=== PATIENT | male | born 1945 | race Caucasian/White ===

== ENCOUNTER 2022-12-26 12:35 | Outpatient (AMB) | payer MEDICARE, SELFPAY ==
--- NOTE | 2022-12-26 12:16 | HO.NEPHOV ---
HPI HPI Comments History of Present Illness Details Elderly man with a history of chronic disease in setting of diabetes mellitus. His history of orthostatic hypertension. Results Reviewed Results Reviewed: All results reviewed Assessment & Plan Assessment & Plan (1) CKD (chronic kidney disease) stage 3, GFR 30-59 ml/min: Code(s): N18.30 - Chronic kidney disease, stage 3 unspecified Plan Renal function close to baseline. Continue monitor renal function for now. Avoid nephrotoxic agents. Continue watch for orthostatic blood pressure changes and avoid rapid change in posture. We discuss orthostatic precautions. He sustained a regular salt diet. No changes were made to his medications. Orders: Orders Electrolytes 4 Weeks N18.30 - Chronic kidney disease, stage 3 unspecified Blood Urea Nitrogen 4 Weeks N18.30 - Chronic kidney disease, stage 3 unspecified Creatinine 4 Weeks N18.30 - Chronic kidney disease, stage 3 unspecified Calcium 4 Weeks N18.30 - Chronic kidney disease, stage 3 unspecified Telehealth Telehealth Location of provider rendering services: practice address Location of patient: address on file Patient Identification confirmed using: Name, : Yes Telehealth method: voice only Patient verbally consented to treatment: Yes Patient verbally consented to billing insurance company: Yes Patient informed of any privacy concerns related to visit: Yes Minutes spent on Phone/Video with Pt.: 12 Coding Level of Care Code Tele Est Pt Level 2 (17539) Diagnoses CKD (chronic kidney disease) stage 3, GFR 30-59 ml/min N18.30
== END 2022-12-26 13:39 | disposition home or self-care (01) ==
LOC: HO.HKA 12:35
PROVIDERS: PCP Specialist; Visit Provider Internal Medicine Hypertension Specialist
DX: N18.30 Chronic kidney disease, stage 3 unspecified (principal)
CPT/HCPCS: 99442

== ENCOUNTER → 2022-12-26 12:35 | Outpatient (BNVA) | payer MEDICARE, SELFPAY | PROVIDERS: PCP Specialist; Visit Provider Internal Medicine Hypertension Specialist ==

== ENCOUNTER 2023-08-05 14:07 | Outpatient (AMB) | payer MEDICARE, SELFPAY ==
--- NOTE | 2023-08-05 14:11 | HO.NEPHOV_ITS ---
Vital Signs 08/05/23 14:12 08/05/23 14:47 08/05/23 14:47 Height 6 ft 2 in Weight 236 lb BMI 30.3 BP 110/62 100/60 84/50 L Blood Pressure Location Lt brachial Lt brachial Lt brachial Position Sitting Sitting Standing Intake Visit Reasons: CKD STG 3 FU/ confirmed Child Life Therapist Required: No Accompanied by: Spouse Allergies methocarbamol Allergy (Unknown, Verified 08/05/23 14:15) Unknown Penicillins Allergy (Unknown, Verified 08/05/23 14:15) Hives prednisone Allergy (Unknown, Verified 08/05/23 14:15) Unknown Medication List - Last Reconciled 08/05/23 by Alton Perez MD amlodipine 5 mg PO .evening apixaban (Eliquis) 2.5 mg PO BID atorvastatin 20 mg PO BEDTIME dapagliflozin propanediol (Farxiga) 10 mg PO DAILY donepezil 10 mg PO BEDTIME echinacea 450 mg PO DAILY finasteride 5 mg PO DAILY insulin degludec (Tresiba FlexTouch U-100 insulin) units subcut losartan 50 mg PO BID mecobalamin (vitamin B12) mcg PO memantine 10 mg PO QPM multivitamin 1 tab PO DAILY pantoprazole 40 mg PO DAILY sertraline 50 mg PO DAILY sertraline 25 mg PO DAILY spironolactone 25 mg PO DAILY turmeric root extract 1,000 mg PO DAILY HPI Comments Details: Adán Gaming is a pleasant 77-year-old man with a history of chronic kidney disease and in a setting of diabetes mellitus with orthostatic blood pressure changes. He has a history of lumbar fusion surgery back in 07/13/2015. He was on a clinical trial for Alzheimer's few years ago however he developed side effects and he was taken of the study. History of prostate CA status post radiation he stopped Lupron due to side effects. Today he is here for follow-up. Accompanied by his . No shortness of breath. No urinary symptoms. No edema. [facility] Surgical History History of back surgery History of appendectomy Social History (Updated 08/05/23 @ 14:15 by MANAS Judd) Patient Tobacco Use Status: Former Tobacco user Physical Exam Vital Signs: Last Vital Signs BP 110/62 06/12/24 14:12 BMI result Body Mass Index 30.3 Const General: comfortable; No acute distress Orientation/consciousness: patient oriented x3 Eyes General: appearance normal, both eyes and all related structures Visual Dupree: normal visual dupree by confrontation Neck Neck: Yes supple and Yes no JVD Resp Effort & Inspection: normal respiratory effort and respiratory effort not decreased Auscultation: rhonchi Cardio Palpation: no palpable S3 and no palpable S4 Heart sounds: no rubs GI Inspection: Yes normal to inspection Palpation (GI): Soft to palpation Percussion: Yes normal to percussion Auscultation: normal bowel sounds General: Yes no CVA tenderness Back/Spine/Pelvis Back: no CVA tenderness Skin General skin exam: no petechiae and no purpura Neuro General: patient oriented x3 and no focal motor deficits Extrem General: No clubbing and No edema Results Reviewed Results Reviewed: Recent creatinine 1.8 Nephrology Results: No Data to Display Assessment & Plan Assessment & Plan (1) CKD (chronic kidney disease) stage 3, GFR 30-59 ml/min: Code(s): N18.30 - Chronic kidney disease, stage 3 unspecified Category: Medical Plan Chronic kidney disease most likely due to underlying diabetic kidney disease. Renal function stable with a creatinine 1.8. Goal is to slow the progression of renal disease. Continue to maintain A1c less than 7% and blood pressure less than 130/80. History of orthostatic blood pressure changes. Today he had orthostatic change without any symptoms. Since systolic blood pressure was very low I have asked him to stop Norvasc 5 mg in the morning and continue 5 mg in the evening. He has been taking twice a day thus far. He will continue with other medications. Continue other orthostatic precautions. I will follow him along with you. Thank you Orders: Orders Basic Metabolic Panel 5 Months N18.30 - Chronic kidney disease, stage 3 unspecified Coding Level of Care Code Est Pt Level 4 (19122) Diagnoses CKD (chronic kidney disease) stage 3, GFR 30-59 ml/min N18.30
[2023-08-05 14:12] VITALS: BP 110/62; BMI 30.3
[2023-08-05 14:47] VITALS: BP 100/60; BP 84/50
== END 2023-08-05 14:35 | disposition home or self-care (01) ==
PROVIDERS: PCP Specialist; Visit Provider Internal Medicine Hypertension Specialist
DX: N18.30 Chronic kidney disease, stage 3 unspecified (principal)
CPT/HCPCS: 99214

== ENCOUNTER → 2023-08-05 14:07 | Outpatient (BNVA) | payer MEDICARE, SELFPAY | PROVIDERS: PCP Specialist; Visit Provider Internal Medicine Hypertension Specialist | DX: E11.22 Type 2 diabetes mellitus with diabetic chronic kidney disease (principal); N18.30 Chronic kidney disease, stage 3 unspecified | CPT/HCPCS: 99212 ==

== ENCOUNTER 2024-02-03 13:27 | Outpatient (AMB) | payer MEDICARE, SELFPAY ==
--- NOTE | 2024-02-03 13:29 | HO.NEPHOV_ITS ---
Vital Signs 02/03/24 13:30 Height 6 ft 2 in Weight 236 lb BMI 30.3 BP 120/72 Blood Pressure Location Lt brachial Position Sitting Intake Visit Reasons: Dec Follow up/ LVM Multimedia Designer Required: No Accompanied by: Spouse Allergies methocarbamol Allergy (Unknown, Verified 02/03/24 13:32) Unknown Penicillins Allergy (Unknown, Verified 02/03/24 13:32) Hives prednisone Allergy (Unknown, Verified 02/03/24 13:32) Unknown Medication List - Last Reconciled 02/03/24 by Alton Perez MD amlodipine 5 mg PO .evening apixaban (Eliquis) 2.5 mg PO BID atorvastatin 20 mg PO BEDTIME dapagliflozin propanediol (Farxiga) 10 mg PO DAILY donepezil 10 mg PO BEDTIME echinacea 450 mg PO DAILY finasteride 5 mg PO DAILY insulin degludec (Tresiba FlexTouch U-100 insulin) units subcut losartan 50 mg PO BID mecobalamin (vitamin B12) mcg PO memantine 10 mg PO QPM multivitamin 1 tab PO DAILY pantoprazole 40 mg PO DAILY sertraline 50 mg PO DAILY sertraline 25 mg PO DAILY spironolactone 25 mg PO DAILY turmeric root extract 1,000 mg PO DAILY HPI Comments Details: . Mekhi is a pleasant 77-year-old man with a history of chronic kidney disease and in a setting of diabetes mellitus with orthostatic blood pressure changes. He has a history of lumbar fusion surgery back in 07/13/2015. He was on a clinical trial for Alzheimer's few years ago however he developed side effects and he was taken of the study. History of prostate CA status post radiation he stopped Lupron due to side effects. Today he is here for follow-up. Accompanied by his . No shortness of breath. No urinary symptoms. No edema. 02/03/24 Recently had shingles REcovered After lowering NOrvasc , Cr has improved. Probably from improved BP PFSH Surgical History History of back surgery History of appendectomy Social History Patient Tobacco Use Status: Former Tobacco user Physical Exam Vital Signs: Last Vital Signs BP 120/72 02/03/24 13:30 BMI result Body Mass Index 30.3 Comfortable Neck supple no JVD. Lungs entry equal no rales. Heart S1-S2 heard no gallop or rub. Abdomen soft nontender. Neuro alert awake oriented. No asterixis. Extremities no edema. Results Reviewed Nephrology Results: No Data to Display Assessment & Plan Assessment & Plan (1) CKD (chronic kidney disease) stage 3, GFR 30-59 ml/min: Code(s): N18.30 - Chronic kidney disease, stage 3 unspecified Category: Medical Plan Chronic kidney disease most likely due to underlying diabetic kidney disease. Renal function has marginally improved creatinine down from 1.8 to 1.4 Goal is to slow the progression of renal disease. Continue to maintain A1c less than 7% and blood pressure less than 130/80. History of orthostatic blood pressure changes. Keep Norvasc at 5 mg in the evening. He will continue with other medications. Continue other orthostatic precautions. Orders: Orders Basic Metabolic Panel 6 Months N18.30 - Chronic kidney disease, stage 3 unspecified Complete Blood Count no Diff 6 Months N18.30 - Chronic kidney disease, stage 3 unspecified Coding Level of Care Code Est Pt Level 4 (74164) Diagnoses CKD (chronic kidney disease) stage 3, GFR 30-59 ml/min N18.30
[2024-02-03 13:30] VITALS: BP 120/72; BMI 30.3
--- OUTSIDE RECORDS SUMMARY | 2024-02-04 02:27 | XMS_ITS | Continuity of Care Document ---
Author Organization [facility] [employer] [facility], [id number] Address [address] [place] [id number] Assessment No assessment recorded. Plan of Treatment Reminders Order Date Submit Date Provider Last Modified By Organization Details Last Modified Time Details Appointments OFFICE VISIT 30 2024 11:00A M YENI Garber Not available Not available Not available Lab CMP, serum or plasma 2023 [facility], [address], [place], [address], 01/07/2024 09:39:23 HbA1c (hemoglob in A1c), blood 2023 024 [facility], [address], [place], [address], 01/07/2024 09:39:26 lipid panel, serum 2023 024 [facility], [address], [place], [address], 01/07/2024 09:39:25 Referral physical therapist referral - lumbago 2023 024 [facility] [place], [address], [address], 01/07/2024 10:00:57 Procedures None recorded. Surgeries None recorded. Imaging None recorded. Medication Orders None recorded. Patient TargetsNo targets recorded. Patient InstructionsNo instructions recorded. Reason for Referral Physical Therapist Referral for Low back pain lumbago Referring Physician: Casa Lim, Family Medicine, Encounter Date: 01/07/2024 Problems Name Problem SNOMED Code Status Onset Date Resolution Date Notes Provider Name and Address Organization Details Recorded Time Essential hypertension 94282722 Active 2023 YENI Garber [address] [place] [address],[place] C, [place], [address], [facility] 4 09:28:59 Hyperlipidemia 79758900 Active 2023 YENI Garber [address] [place] [address],[place] C, [place], [address], [facility] 4 09:29:07 Diabetes mellitus 15892374 Active 2023 YENI Garber [address] [place] [address],[place] C, [place], [address], [facility] 4 09:29:25 Chronic kidney disease 444387917 Active 2023 YENI Garber [address] [place] [address],[place] C, [place], [address], [facility] 4 09:29:40 Alzheimer's disease 13151851 Active 2023 YENI Garber [address] [place] [address],[place] C, [place], [address], [facility] 4 09:32:11 Problem Notes None recorded. Medical Equipment None Reported. Allergies Allergen ID Allergen Name Allergen Category Reaction Reaction Severity Criticality Documentation Date Start Date Code Code System Note Provider Name and Address Organization Details Recorded Time 1053 Medicinal product containin g penicilli n and acting as antibacte rial agent (product) medicatio n Not available Not available Not available 01/07/2024 13033 05 SNOMED Marva Garcia [facility], [facility] 4 09:15:27 Medications Name Sig Start Date Stop Date Status Note LastModified by Organization Details LastModified Time losartan 50 mg tablet active Not Available Not Available Not Available atorvastatin 20 mg tablet active Not Available Not Available No t Available donepezil 10 mg tablet active Not Available Not Available Not Available amlodipine 5 mg tablet Take 1 tablet every day by oral route. active Not Available Not Available No t Available spironolactone 25 mg tablet active Not Available Not Available Not Available pantoprazole 40 mg tablet,delayed release active Not Available Not Available Not Available sertraline 50 mg tablet active 75 mg Not Available Not Available No t Available finasteride 5 mg tablet active Not Available Not Available No t Available memantine 10 mg tablet active Not Available Not Available Not Available Eliquis 2.5 mg tablet active Not Available Not Available Not Available Farxiga 10 mg tablet TAKE 1 TABLET BY MOUTH EVERY DAY active Not Available Not Available No t Available Tresiba FlexTouch U-100 insulin 100 unit/mL (3 mL) subcutaneous pen active 15 units Not Available Not Available Not Available Vitals Date Recorded Body weight Heart rate Systolic blood pressure Diastolic blood pressure Provider Name and Address Organization Details Last Updated DateTime 01/07/2024 509494.25 g 60 /min 103 mm[Hg] 68 mm[Hg] Marva Garcia [facility] 01/07/2024 09:19:02 Social History None recorded. Functional Status None recorded. Mental Status None recorded. Family History Nothing Reported. Medical History No medical history recorded. Immunizations Vaccine Type Date Status Note Provider Nam e and Address Organization Details Recorded Time Pneumococcal conjugate PCV20, polysaccharide [id number] conjugate, adjuvant, PF completed Alicia saucedo [facility] 01/07/2024 11:02:33 Past Encounters Encounter ID Performer Location Encounter Start Date Encounter Closed Date Diagnosis/Indication Diagnosis SNOMED-CT Code Diagnosis ICD10 Code [id number] YENI Garber [id number] [address] [place] [phone] 01/07/2024 09:05:22 01/07/2024 10:23:51 Hyperlipidemia 92900809 E78.5 Essential hypertension 78459743 I10 Diabetes mellitus 195661 09 E11.21 Chronic ki dney disease 374702347 N18.9 Alzheimer's disease 2692 9004 G30.9 Adult heal th examination 798488448 Z00.00 Low back pain 825352805 M54.50 Health Concerns Section Related Observation LastModified by Organization Detai ls LastModified Time None Recorded Concern Status LastModified by Organization Details LastModified Time None Recorded Payers Encounter Date Sequence Insurance Name Policy Number Policy Blackman Covered Member ID Blackman Member ID Guarantor Name 01/07/2024 1 MEDICARE B-CT: NGS [employer] [id number] [employer] 01/07/2024 2 [employer] (MEDICARE SUPPLEMENT) [employer]rand [employer] [id number] [employer] Notes Date Note Type Note Provider Name and Address Organization Details Recorded Time 01/07/2024 text/html The patient presents today with a report of having had a rash in his groin and hip area at the end of November, which was diagnosed as shingles by an urgent care provider. He experienced significant pain, initially believing it to be related to his back. The patient is now interested in receiving the shingles vaccine but will need to wait three years due to recently having shingles.The patient inquires about the RSV vaccine he received last year and its frequency of administration. He has not yet received the pneumonia vaccine and is willing to get it during the visit.He expresses curiosity about the safety of peptides in an energy drink, in relation to his stage three kidney failure and ACEs. The patient also mentions having an MRI of his back during the summer but was unaware of the results. He has a history of physical therapy and is open to further treatment.The patient expresses concerns about anesthesia due to his dementia, mentioning a friend's experience with post-anesthesia confusion.Regardin g his health status, the patient's blood work results show an A1c of 6.7, stable kidney function, and appropriate cholesterol levels. He has been seeing a lathe setup operator and monitoring his blood pressure. The patient reports his blood pressure readings at home range from 129 to 168, with today's reading being 103/68, which is noted as very low for him. YENI Garber [address] [place] [address], [phone], [facility] 01/07/2024 09:55:48
--- OUTSIDE RECORDS SUMMARY | 2024-02-04 02:27 | XMS_ITS | Data Portability ---
Author Organization [facility], autoContract - [facility] Address [address] [place] [id number] Assessment No assessment recorded. Plan of Treatment Reminders Order Date Submit Date Provider Last Modified By Organization Details Last Modified Time Details Appointments OFFICE VISIT 30 2024 11:00A M YENI Garber Not available Not available Not available Lab CMP, serum or plasma 2023 024 [facility], [address], [place], [address], 01/07/2024 09:39:23 HbA1c (hemoglob in A1c), blood 2023 024 [facility], [address], [place], [address], 01/07/2024 09:39:26 lipid panel, serum 2023 024 [facility], [address], [place], [address], 01/07/2024 09:39:25 Referral physical therapist referral - lumbago 2023 024 [facility] [place], [address] [facility], [address], [address], 01/07/2024 10:00:57 Procedures None recorded. Surgeries None recorded. Imaging None recorded. Medication Orders None recorded. Patient TargetsNo targets recorded. Patient InstructionsNo instructions recorded. Reason for Referral Physical Therapist Referral for Low back pain lumbago Referring Physician: Casa Lim, Family Medicine, Encounter Date: 01/07/2024 Results Created Date Observation Date Name Description Value Unit Range Abnormal Flag Note LastModifiedBy Organization Detail LastModifiedTime 12/30/19 24 12/30/2023 LIPID PANEL WITH REFLE X TO DIREC T LDL cholesterol, total 116 mg/dL <200 normal Not Available [facility] [place] [facility] [address], [place], [address], 12/30/2023 22:36:30 12/30/19 24 12/30/2023 LIPID PANEL WITH REFLE X TO DIREC T LDL HDL cholesterol 33 mg/dL > or = 40 low Not Available [facility] [place] [facility] [address], [place], [address], 12/30/2023 22:36:30 12/30/19 24 12/30/2023 LIPID PANEL WITH REFLE X TO DIREC T LDL triglyceride s 76 mg/dL <150 normal Not Available [facility] [place] [facility] [address], [place], [address], 12/30/2023 22:36:30 12/30/19 24 12/30/2023 LIPID PANEL WITH REFLE X TO DIREC T LDL LDL-choleste rol 67 mg/dL _(kristy c) normal Refer ence range : <100 Tierra able range <100 mg/dL for prima ry preve ntion ; <70 mg/dL for patie nts with CHD or diabe tic patie nts with > or = 2 CHD risk facto rs. LDL-C is now calcu lated using the Amita n-Hop kins calcu cherry n, which is a valid ated novel allison edwards than the Fried wagner equat ion in the estim ation of LDL-C . Amita MERCER et al. MALA. 2013; 310(1 9): 2061- 2068 (http ://ed ucati on.Qu [place]ilton Philrealestates. com/f aq/FA Q164) Not Available [facility] [place] [facility] [address] [place], [address], 12/30/2023 22:36:30 12/30/19 24 12/30/2023 LIPID PANEL WITH REFLE X TO DIREC T LDL chol/HDLC ratio 3.5 (calc ) <5.0 normal Not Available [facility] [place] [facility] [address], [place], [address], 12/30/2023 22:36:30 12/30/19 24 12/30/2023 LIPID PANEL WITH REFLE X TO DIREC T LDL non HDL cholesterol 83 mg/dL _(kristy c) <130 normal For patie nts with diabe jolene plus 1 major ASCVD risk facto r, treat ing to a non-H DL-C goal of <100 mg/dL (LDL- C of <70 mg/dL ) is consi dered a thera peuti c optio n. Not Available [facility] [place] [facility] [address], [place], [address], 12/30/2023 22:36:30 12/30/19 24 12/30/2023 COMPR EHENS MARIANA METAB OLIC PANEL glucose 117 mg/dL 65-99 high Fasti ng refer ence inter fang For someo ne witho ut known diabe jolene, a gluco se value betwe en 100 and 125 mg/dL is consi stent with predi abete s and shoul d be confi rmed with a follo w-up test. Not Available [facility] [place] [facility] [address], [place], [address], 12/30/2023 22:36:31 12/30/19 24 12/30/2023 COMPR EHENS MARIANA METAB OLIC PANEL urea nitrogen (BUN) 46 mg/dL 7-25 high Not Available [facility] [place] [facility] [address], [place], [address], 12/30/2023 22:36:31 12/30/19 24 12/30/2023 COMPR EHENS MARIANA METAB OLIC PANEL creatinine 1.96 mg/dL 0.70-1 .22 high Not Available [facility] [address], [place], [address], 12/30/2023 22:36:31 12/30/19 24 12/30/2023 COMPR EHENS MARIANA METAB OLIC PANEL eGFR 34 mL/mi n/1.7 3m2 > or = 60 low Not Available [facility] [address], [place], [address], 12/30/2023 22:36:31 12/30/19 24 12/30/2023 COMPR EHENS MARIANA METAB OLIC PANEL BUN/creatini ne ratio 23 (calc ) 6-22 high Not Available [facility] [address], [place], [address], 12/30/2023 22:36:31 12/30/19 24 12/30/2023 COMPR EHENS MARIANA METAB OLIC PANEL sodium 144 mmol/ L 135-14 6 normal Not Available [facility] [address], [place], [address], 12/30/2023 22:36:31 12/30/19 24 12/30/2023 COMPR EHENS MARIANA METAB OLIC PANEL potassium 4.7 mmol/ L 3.5-5. 3 normal Not Available [facility] [address], [place], [address], 12/30/2023 22:36:31 12/30/19 24 12/30/2023 COMPR EHENS MARIANA METAB OLIC PANEL chloride 114 mmol/ L 98-110 high Not Available [facility] [address], [place], [address], 12/30/2023 22:36:31 12/30/19 24 12/30/2023 COMPR EHENS MARIANA METAB OLIC PANEL carbon dioxide 19 mmol/ L 20-32 low Not Available [facility] [address], [place], [address], 12/30/2023 22:36:31 12/30/19 24 12/30/2023 COMPR EHENS MARIANA METAB OLIC PANEL calcium 9.2 mg/dL 8.6-10 .3 normal Not Available [facility] [address], [place], [address], 12/30/2023 22:36:31 12/30/19 24 12/30/2023 COMPR EHENS MARIANA METAB OLIC PANEL protein, total 6.7 g/dL 6.1-8. 1 normal Not Available [facility] [address], [place], [address], 12/30/2023 22:36:31 12/30/19 24 12/30/2023 COMPR EHENS MARIANA METAB OLIC PANEL albumin 3.9 g/dL 3.6-5. 1 normal Not Available [facility] [address], [place], [address], 12/30/2023 22:36:31 12/30/19 24 12/30/2023 COMPR EHENS MARIANA METAB OLIC PANEL globulin 2.8 g/dL_ (calc ) 1.9-3. 7 normal Not Available [facility] [address], [place], [address], 12/30/2023 22:36:31 12/30/19 24 12/30/2023 COMPR EHENS MARIANA METAB OLIC PANEL albumin/glob ulin ratio 1.4 (calc ) 1.0-2. 5 normal Not Available [facility] [address], [place], [address], 12/30/2023 22:36:31 12/30/19 24 12/30/2023 COMPR EHENS MARIANA METAB OLIC PANEL bilirubin, total 0.5 mg/dL 0.2-1. 2 normal Not Available [facility] [address], [place], [address], 12/30/2023 22:36:31 12/30/19 24 12/30/2023 COMPR EHENS MARIANA METAB OLIC PANEL alkaline phosphatase 67 U/L 35-144 normal Not Available [facility] [employer] [facility] [address], [place], [address], 12/30/2023 22:36:31 12/30/19 24 12/30/2023 COMPR EHENS MARIANA METAB OLIC PANEL AST 15 U/L 10-35 normal Not Available [facility] [address], [place], [address], 12/30/2023 22:36:31 12/30/19 24 12/30/2023 COMPR EHENS MARIANA METAB OLIC PANEL ALT 16 U/L 9-46 normal Not Available [facility] [address], [place], [address], 12/30/2023 22:36:31 12/30/19 24 12/30/2023 HEMOG LOBIN A1C WITH MPG hemoglobin A1C 6.7 %_of_ total _HGB <5.7 high For someo ne witho ut known diabe jolene, a hemog lobin A1c value of 6.5% or great er indic ates that they may have diabe jolene and this shoul d be confi rmed with a follo w-up test. For someo ne with known diabe jolene, a value <7% indic ates that their diabe jolene is well contr olled and a value great er than or equal to 7% indic ates subop timal contr ol. A1c targe ts shoul d be indiv idual ized based on durat ion of diabe jolene, age, comor bid condi tions , and other consi derat ions. Curre ntly, no conse nsus exist s le garcia use of hemog lobin A1c for diagn osis of diabe jolene for child marsha. Not Available [facility] [place] [facility] [address], [place], [address], 12/30/2023 22:36:31 12/30/19 24 12/30/2023 HEMOG LOBIN A1C WITH MPG mean plasma glucose 161 mg/dL _(kristy c) Not Available [facility] [place] [facility] [address], [place], [address], 12/30/2023 22:36:31 Result Notes None recorded. Problems Name Problem SNOMED Code Status Onset Date Resolution Date Notes Provider Name and Address Organization Details Recorded Time Essential hypertension 65133361 Active 2023 YENI Garber [address], [place], [address], [facility] 4 09:28:59 Hyperlipidemia 93375041 Active 2023 YENI Garber [address], [place], [address], [facility] 4 09:29:07 Diabetes mellitus 30335129 Active 2023 YENI Garber [address], [place], [address], [facility] 4 09:29:25 Chronic kidney disease 418805008 Active 2023 YENI Garber [address], [place], [address], [facility] 4 09:29:40 Alzheimer's disease 84459381 Active 2023 YENI Garber [address], [place], [address], [facility] 4 09:32:11 Problem Notes None recorded. Medical Equipment None Reported. Allergies Allergen ID Allergen Name Allergen Category Reaction Reaction Severity Criticality Documentation Date Start Date Code Code System Note Provider Name and Address Organization Details Recorded Time 1053 Medicinal product containin g penicilli n and acting as antibacte rial agent (product) medicatio n Not available Not available Not available 01/07/2024 95506 05 SNOMED [facility] 09:[facility]27 Medications Name Sig Start Date [...] Address Organization Details Last Updated DateTime 01/07/2024 931736.25 g 60 /min 103 mm[Hg] 68 mm[Hg] [facility] 01/07/[facility]24 09:19:02 Social History None recorded. Functional Status None recorded. Mental Status None recorded. Family History Nothing Reported. Medical History No medical history recorded. Immunizations Vaccine Type Date Status Note Provider Nam e and Address Organization Details Recorded Time Pneumococcal conjugate PCV20, polysaccharide [id number] conjugate, adjuvant, PF 4 completed [facility] 01/07/2024 11:02:33 Past Encounters Encounter ID Performer Location Encounter Start Date Encounter Closed Date Diagnosis/Indication Diagnosis SNOMED-CT Code Diagnosis ICD10 Code [id number] YENI Garber [id number] [id number] [address] [place] [phone] 01/07/2024 09:05:22 01/07/2024 10:23:51 Hyperlipidemia 69258062 E78.5 Essential hypertension 07233958 I10 Diabetes mellitus 468511 09 E11.21 Chronic ki dney disease 944953859 N18.9 Alzheimer's disease 2692 9004 G30.9 Adult heal th examination 743069334 Z00.00 Low back pain 340113166 M54.50 Health Concerns Section Related Observation LastModified by Organization Detai ls LastModified Time None Recorded Concern Status LastModified by Organization Details LastModified Time None Recorded Advance Directives Directive None Recorded Payers Encounter Date Sequence Insurance Name Policy Number Policy Blackman Covered Member ID Blackman Member ID Guarantor Name 01/07/2024 1 MEDICARE B-CT: NGS [employer] [id number] [employer] 01/07/2024 2 [employer] OPTIONS (MEDICARE SUPPLEMENT) [employer] [id number] [employer] Notes Date Note Type Note [...] cholesterol levels. He has been seeing a copy clerk and monitoring his blood pressure. The patient reports his blood pressure readings at home range from 129 to 168, with today's reading being 103/68, which is noted as very low for him. YENI Garber [address] [place] [address], [place], [phone], [facility] 01/07/2024 09:55:48
--- OUTSIDE RECORDS SUMMARY | 2024-02-04 02:27 | XMS_ITS ---
Author Name [facility] Organization Unknown Results Test Name/Text Value Interpretation Date Range Source HbA1c MFr Bld 6.7%oftotalHgb Above high normal 011950962001 - 5.7 [facility] Est. average glucose Bld gHb Est-mCnc 161mg/dL(calc) Normal 329882930058 [facility] Cholest SerPl-mCnc 116mg/dL Normal 654364747751 - 200 [facility] Cholest/HDLc SerPl 3.5(calc) Normal 158682244095 - 5 [facility] LDLc SerPl Calc-mCnc 67mg/dL(calc) Normal 086795125323 [facility] Trigl SerPl-mCnc 76mg/dL Normal 553242303366 - 150 [facility] NonHDLc SerPl-mCnc 83mg/dL(calc) Normal 532741089912 - 13 0 [facility] HDLc SerPl-mCnc 33mg/dL Below low normal 573051219488 - [facility] Prot SerPl-mCnc 6.7g/dL Normal 917491836759 6.1 - 8.1 Q [facility] ALP SerPl-cCnc 67U/L Normal 142547362533 35 - 144 [facility] EST BUN/Creat SerPl 23(calc) Above high normal 999424576495 6 - 22 [facility] Albumin/Glob SerPl 1.4(calc) Normal [id number] 1 - 2.5 [facility] Creat SerPl-mCnc 1.96mg/dL Above high normal 020944432879 0. 7 - 1.22 [facility] Potassium SerPl-sCnc 4.7mmol/L Normal 737853606744 3.5 - 5.3 [facility] Albumin SerPl-mCnc 3.9g/dL Normal 221202653469 3.6 - 5. 1 [facility] Sodium SerPl-sCnc 144mmol/L Normal 021343992682 135 - 146 [facility] Globulin Ser Calc-mCnc 2.8g/dL(calc) Normal 266149608918 1.9 - 3.7 [facility] Bilirub SerPl-mCnc 0.5mg/dL Normal 766113913473 0.2 - 1. 2 [facility] Calcium SerPl-mCnc 9.2mg/dL Normal 486705358547 8.6 - 10 .3 [facility] BUN SerPl-mCnc 46mg/dL Above high normal [id number] 7 - 25 [facility] Glucose SerPl-mCnc 117mg/dL Above high normal [id number] 65 - 99 [facility] eGFRcr SerPlBld CKD-EPI 2020 34mL/min/1.73m 2 Below low normal 391075685944 - [facility] AST SerPl-cCnc 15U/L Normal [id number] 10 - 35 [facility] CO2 SerPl-sCnc 19mmol/L Below low normal [id number] 20 - 32 [facility] Chloride SerPl-sCnc 114mmol/L Above high normal [id number] 98 - 110 [facility] ALT SerPl-cCnc 16U/L Normal [id number] 9 - 46 [facility] PSA SERPL-MCNC 0ng/mL Normal 681060124139 0 - 4 CT [facility]SFRAN History of Medication Use Medication Directions Dispensed Refills Start Date End Date Stat us atorvastatin (LIPITOR) tablet 20 mg TAKE 1 TABLET BY MOUTH ONCE DAILY 11/30/2023 active 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 11/30/2023 active Farxiga 10 MG tablet TAKE 1 TABLET BY MOUTH DAILY 11/30/2023 active hydrOXYzine (VISTARIL) 25 MG capsule Take 1 capsule (25 mg total) by mouth every 6 (six) hours as needed. 11/26/2023 active donepezil (ARICEPT) 10 MG tablet Take 1 tablet (10 mg total) by mouth every night at bedtime. 11/26/2023 active spironolactone (ALDACTONE) tablet 25 mg TAKE 1 TABLET BY MOUTH DAILY 11/26/2023 active ECHINACEA PO Take 1 capsule by mouth daily. 11/26/2023 active traMADol-acetaminophe n (ULTRACET) 37.5-325 MG per tablet Take 1 tablet by mouth every 6 (six) hours as needed for pain. 11/26/2023 active Eliquis 2.5 MG TABS tablet TAKE 1 TABLET BY MOUTH EVERY 12 HOURS 11/26/2023 active Multiple Vitamins-Minerals (MULTIVITAMIN ADULT PO) Take by mouth. 11/26/2023 active Continuous Glucose Sensor (FreeStyle Chacorta 3 Sensor) MISC 1 each by Does not apply route every 14 (fourteen) days. 11/26/2023 active finasteride (PROSCAR) 5 MG tablet Take 1 tablet (5 mg total) by mouth daily. 11/26/2023 active amLODIPine (NORVASC) tablet 5 mg TAKE 1 TABLET BY MOUTH TWICE DAILY 11/26/2023 active atorvastatin (LIPITOR) tablet 20 mg TAKE 1 TABLET BY MOUTH ONCE DAILY 11/26/2023 active pantoprazole (PROTONIX) 40 MG tablet 11/26/2023 active sertraline (ZOLOFT) 50 MG tablet TAKE 1 AND 1/2 TABLETS BY MOUTH DAILY 11/26/2023 active Insulin Degludec (Tresiba FlexTouch) 100 UNIT/ML SOPN Inject 15 Units under the skin every night at bedtime. 11/26/2023 active Farxiga 10 MG tablet TAKE 1 TABLET BY MOUTH DAILY 11/26/2023 active losartan (COZAAR) tablet 50 mg TAKE 1 TABLET BY MOUTH TWICE DAILY 11/26/2023 active memantine (NAMENDA) 10 MG tablet TAKE 1 TABLET BY MOUTH TWO TIMES DAILY 11/26/2023 active Cyanocobalamin (VITAMIN B-12 PO) Take 1 tablet by mouth daily. 11/26/2023 active psyllium (METAMUCIL SMOOTH TEXTURE) 28 % packet Take 1 packet by mouth. 11/26/2023 active Cyanocobalamin (VITAMIN B-12 PO) Take 1 tablet by mouth daily. 05/16/2023 active finasteride (PROSCAR) 5 MG tablet Take 1 tablet (5 mg total) by mouth daily. 05/16/2023 active spironolactone (ALDACTONE) tablet 25 mg TAKE 1 TABLET BY MOUTH DAILY 05/16/2023 active Eliquis 2.5 MG TABS tablet TAKE 1 TABLET BY MOUTH EVERY 12 HOURS 05/16/2023 active pantoprazole (PROTONIX) 40 MG tablet 05/16/2023 active atorvastatin (LIPITOR) tablet 20 mg TAKE 1 TABLET BY MOUTH DAILY 05/16/2023 active memantine (NAMENDA) 10 MG tablet TAKE 1 TABLET BY MOUTH TWO TIMES DAILY 05/16/2023 active psyllium (METAMUCIL SMOOTH TEXTURE) 28 % packet Take 1 packet by mouth. 05/16/2023 active traMADol-acetaminophe n (ULTRACET) 37.5-325 MG per tablet Take 1 tablet by mouth every 6 (six) hours as needed for pain. 05/16/2023 active dapagliflozin (Farxiga) 10 MG tablet Take 1 tablet (10 mg total) by mouth daily. 05/16/2023 active Insulin Degludec (Tresiba FlexTouch) 100 UNIT/ML SOPN Inject 15 Units under the skin every night at bedtime. 05/16/2023 active donepezil (ARICEPT) 10 MG tablet Take 1 tablet (10 mg total) by mouth every night at bedtime. 05/16/2023 active amLODIPine (NORVASC) tablet 5 mg TAKE 1 TABLET BY MOUTH TWICE DAILY 05/16/2023 active Turmeric (QC TUMERIC COMPLEX PO) Take by mouth. 05/16/2023 active losartan (COZAAR) tablet 50 mg TAKE 1 TABLET BY MOUTH TWICE DAILY 05/16/2023 active ECHINACEA PO Take 1 capsule by mouth daily. 05/16/2023 active hydrOXYzine (VISTARIL) 25 MG capsule Take 1 capsule (25 mg total) by mouth every 6 (six) hours as needed. 05/16/2023 active sertraline (ZOLOFT) 50 MG tablet TAKE 1 AND 1/2 TABLETS BY MOUTH DAILY 05/16/2023 active ECHINACEA PO Take 1 capsule by mouth daily. 05/15/2023 active Cyanocobalamin (VITAMIN B-12 PO) Take 1 tablet by mouth daily. 05/15/2023 active psyllium (METAMUCIL SMOOTH TEXTURE) 28 % packet Take 1 packet by mouth. 05/15/2023 active finasteride (PROSCAR) 5 MG tablet Take 1 tablet (5 mg total) by mouth daily. 05/15/2023 active memantine (NAMENDA) 10 MG tablet TAKE 1 TABLET BY MOUTH TWO TIMES DAILY 05/15/2023 active traMADol-acetaminophe n (ULTRACET) 37.5-325 MG per tablet Take 1 tablet by mouth every 6 (six) hours as needed for pain. 05/15/2023 active Farxiga 10 MG tablet TAKE 1 TABLET BY MOUTH DAILY 05/15/2023 aborted losartan (COZAAR) tablet 50 mg TAKE 1 TABLET BY MOUTH TWICE DAILY 05/15/2023 active amLODIPine (NORVASC) tablet 5 mg TAKE 1 TABLET BY MOUTH TWICE DAILY 05/15/2023 active Eliquis 2.5 MG TABS tablet TAKE 1 TABLET BY MOUTH EVERY 12 HOURS 05/15/2023 active sertraline (ZOLOFT) 50 MG tablet TAKE 1 AND 1/2 TABLETS BY MOUTH DAILY 05/15/2023 active Loperamide HCl (IMODIUM PO) Take by mouth. 05/15/2023 active donepezil (ARICEPT) 10 MG tablet Take 1 tablet (10 mg total) by mouth every night at bedtime. 05/15/2023 active pantoprazole (PROTONIX) 40 MG tablet 05/15/2023 active Insulin Degludec (Tresiba FlexTouch) 100 UNIT/ML SOPN Inject 15 Units under the skin every night at bedtime. 05/15/2023 active Barium Sulfate (E-Z-HD) 98 % suspension 2-20 mL 2-20 mL, Oral, IMG once as needed, contrast, Starting on Thu05/08/23 at 0920, For 1 dose 05/15/2023 completed atorvastatin (LIPITOR) tablet 20 mg TAKE 1 TABLET BY MOUTH DAILY 05/15/2023 active hydrOXYzine (VISTARIL) 25 MG capsule Take 1 capsule (25 mg total) by mouth every 6 (six) hours as needed. 05/15/2023 active spironolactone (ALDACTONE) tablet 25 mg TAKE 1 TABLET BY MOUTH DAILY 05/15/2023 active Echinacea 125 MG Tab Take by mouth. 11/15/2021 active Cyanocobalamin (B-12) 1000 MCG Cap Take by mouth. 11/15/2021 active insulin degludec (TRESIBA FLEXTOUCH) 100 UNIT/ML pen injection Inject 32 Units under the skin nightly. 11/15/2021 active Psyllium (METAMUCIL PO) Take 1 packet by mouth daily as needed. 11/15/2021 active Acetaminophen (APAP PO) Take 2 tablets by mouth daily as needed. 11/15/2021 active atorvastatin (LIPITOR) 20 MG tablet Take 20 mg by mouth nightly. 11/15/2021 active Probiotic Product (PROBIOTIC PO) Take 1 gummy by mouth daily. 11/15/2021 active Eliquis 2.5 MG tablet 11/15/2021 active spironolactone (ALDACTONE) 25 MG tablet Take 25 mg by mouth daily. 11/15/2021 active finasteride (PROSCAR) 5 MG tablet Take 5 mg by mouth daily. 11/15/2021 active atorvastatin (LIPITOR) 20 MG tablet Take 20 mg by mouth nightly. 11/15/2021 active Probiotic Product (PROBIOTIC PO) Take 1 gummy by mouth daily. 11/15/2021 active donepezil (ARICEPT) 10 MG tablet Take 10 mg by mouth nightly. 11/15/2021 active memantine (NAMENDA) 10 MG tablet Take 10 mg by mouth 2 (two) times a day. 11/15/2021 active amLODIPine (NORVASC) 10 MG tablet 11/15/2021 aborted multivitamin Tab tablet Take 1 tablet by mouth daily. 11/15/2021 active PANTOprazole (PROTONIX) 40 MG EC tablet Take 1 tablet (40 mg total) by mouth daily. 11/15/2021 active losartan (COZAAR) 50 MG tablet Take 50 mg by mouth daily. 11/15/2021 active lidocaine (PROZENA) 4 % patch Apply 1 patch topically daily as needed. 11/15/2021 active dapagliflozin 10 MG tablet 07/16/2022 active sertraline (ZOLOFT) 50 MG tablet Take 75 mg by mouth every morning. 11/15/2021 active Problems Problem Status Onset Date Problem Type Date of Resolution Source Encounter for screening for malignant neoplasm of prostate active EncounterDiagnosisAct [facility] Throat clearing active 2021-04-23 8 ProblemAct [facility] Normochromic anemia active 2017-10-25 0 ProblemAct [facility] Thoracic aortic aneurysm without rupture active 2021-05-25 7 ProblemAct [facility] Gastroesophageal reflux disease active 2021-04-23 5 ProblemAct [facility] Hx of colonic polyps active 2018-02-24 9 ProblemAct [facility] Pure hypercholesterolemia active 5 ProblemAct [facility] Lumbar spondylosis active 2021-10-25 1 ProblemAct [facility] Syndesmophyte active 2021-10-25 1 ProblemAct [facility] Herpes zoster without complication active EncounterDiagnosisAct [facility] Atrial fibrillation active 6 ProblemAct [facility] Bradycardia active 2 ProblemAct [facility] Dementia without behavioral disturbance active 2017-08-23 0 ProblemAct [facility] Type 2 diabetes mellitus with stage 3b chronic kidney disease, with long-term current use of insulin active 5 ProblemAct [facility] History of colon polyps active 2017-10-25 0 ProblemAct [facility] Essential hypertension active 5 ProblemAct [facility] Gastroesophageal reflux disease without esophagitis active 2022-07-24 9 ProblemAct [facility] Change in bowel function active 2022-06 2 ProblemAct [facility] Stage 3 chronic kidney disease active 5 ProblemAct [facility] Prostate cancer active 5 ProblemAct [facility] PVD (peripheral vascular disease) active 2020-04-23 0 ProblemAct [facility] Aneurysm of ascending aorta without rupture (HCC) active EncounterDiagnosisAct [facility] History of colon polyps active 2017-10-25 0 ProblemAct [facility] Persistent atrial fibrillation (HCC) active EncounterDiagnosisAct [facility] Diarrhea active 2022-03-27 1 ProblemAct [facility] Immunizations Vaccine Date Source Lot Number Status Covid-19 MRNA Vaccine - Pfiz er 12+ (Purple Cap) 04/06/2020 [facility] [id number] completed Covid-19 MRNA Vaccine - Pfiz er 12+ (Purple Cap) 03/16/2020 [facility] [id number] completed Influenza Quad (Afluria/Fluz one) 0.5mL >=6mon Vial (SD-IIV4) 01/06/2017 [facility] completed Influenza Trivalent (Fluzone /Afluria) 5.0mL Multi-dose Vial 12/27/2018 [facility] [id number] completed Influenza Quad (Afluria/Fluz one) 0.5mL >=6mon Vial (SD-IIV4) 12/19/2017 [facility] completed
== END 2024-02-03 13:51 | disposition home or self-care (01) ==
PROVIDERS: PCP Specialist; Visit Provider Internal Medicine Hypertension Specialist
DX: E11.22 Type 2 diabetes mellitus with diabetic chronic kidney disease (principal); N18.30 Chronic kidney disease, stage 3 unspecified
CPT/HCPCS: 99214

== ENCOUNTER → 2024-02-03 13:27 | Outpatient (BNVA) | payer MEDICARE, SELFPAY | PROVIDERS: PCP Specialist; Visit Provider Internal Medicine Hypertension Specialist | DX: E11.22 Type 2 diabetes mellitus with diabetic chronic kidney disease (principal); N18.30 Chronic kidney disease, stage 3 unspecified; Z85.46 Personal history of malignant neoplasm of prostate | CPT/HCPCS: 99212 ==

== ENCOUNTER 2024-10-05 13:33 | Outpatient (AMB) | payer MEDICARE, SELFPAY ==
[2024-10-05 13:33] VITALS: BP 140/70; PULSE 57; O2SAT 97
--- NOTE | 2024-10-05 13:33 | HO.NEPHOV ---
Vital Signs 10/05/24 13:33 Height 6 ft 2 in BP 140/70 H Blood Pressure Location Lt brachial Position Sitting Pulse 57 Pulse Source Pulse Oximeter Pulse Oximetry (%) 97 Oxygen Delivery Method Room Air Intake Visit Reasons: 6 Month follow up-Conf w/ Putty And Patch Worker Required: No Accompanied by: Spouse Allergies methocarbamol Allergy (Unknown, Verified 10/05/24 13:35) Unknown Penicillins Allergy (Unknown, Verified 10/05/24 13:35) Hives prednisone Allergy (Unknown, Verified 10/05/24 13:35) Unknown Medication List - Last Reconciled 10/05/24 by Alton Perez MD acetaminophen (Tylenol) 325 mg PO QID PRN apixaban (Eliquis) 2.5 mg PO BID atorvastatin 20 mg PO BEDTIME donepezil 10 mg PO BEDTIME hydroxyzine HCl 25 mg PO Q6-8H PRN insulin degludec (Tresiba FlexTouch U-100 insulin) 15 units subcut mecobalamin (vitamin B12) mcg PO melatonin 3 mg PO BEDTIME PRN memantine 10 mg PO QPM midodrine 2.5 mg PO TID pantoprazole 40 mg PO DAILY sertraline 100 mg PO DAILY HPI Comments Details: . Mekhi is a pleasant 77-year-old man with a history of chronic kidney disease and in a setting of diabetes mellitus with orthostatic blood pressure changes. He has a history of lumbar fusion surgery back in 07/13/2015. He was on a clinical trial for Alzheimer's few years ago however he developed side effects and he was taken of the study. History of prostate CA status post radiation he stopped Lupron due to side effects. Today he is here for follow-up. Accompanied by his . No shortness of breath. No urinary symptoms. No edema. 02/03/24 Recently had shingles REcovered After lowering NOrvasc , Cr has improved. Probably from improved BP 10/05/24 The patient is an 78-year-old male presenting with orthostatic hypotension and associated muscle weakness. s/p Ureteral stone in Mar 2024,He underwent stent placement and lithotripsy. Following these procedures, he experienced recurrent urinary tract infections and significant muscle weakness. The patient was hospitalized for 10 days due to orthostatic hypotension, during which his medication regimen was adjusted. Since discharge, he has been unable to walk or stand independently, requiring assistance for mobility. He is currently receiving daily rehabilitation to improve muscle strength. Blood pressure management has been challenging, with fluctuations between high and low readings. Adjustments to his antihypertensive medications have been made to stabilize his blood pressure, particularly during the day. His kidney function has shown improvement, with a recent creatinine level of 1.5 mg/dL and an estimated glomerular filtration rate of 45%, up from 36% two months prior. [facility] Surgical History (Updated 10/05/24 @ 13:48 by MANAS Judd) Status post laser lithotripsy of ureteral calculus History of back surgery History of appendectomy Social History Patient Tobacco Use Status: Former Tobacco user Physical Exam Comfortable Neck supple no JVD. Lungs entry equal no rales. Heart S1-S2 heard no gallop or rub. Abdomen soft nontender. Neuro alert awake oriented. No asterixis. Extremities no edema. Assessment & Plan Assessment & Plan (1) CKD (chronic kidney disease) stage 3, GFR 30-59 ml/min: Code(s): N18.30 - Chronic kidney disease, stage 3 unspecified Category: Medical Plan Chronic kidney disease most likely due to underlying diabetic kidney disease. Renal function has marginally improved creatinine down from 1.8 to 1.4 Goal is to slow the progression of renal disease. Continue to maintain A1c less than 7% and blood pressure less than 130/80. History of orthostatic blood pressure changes. Keep Norvasc at 5 mg in the evening. He will continue with other medications. Continue other orthostatic precautions. 10/05/24 CKD 3 ANGI has resolved Nephrolithiasis with obstratuction s/p Stent Renal function back to baseline DEmentia Orthostatic hypotension Increase Midodrine ot 10 mg TID Hold if SBP > 140 DIANA stocking Supportive care Coding Level of Care Code Est Pt Level 4 (40193) Diagnoses CKD (chronic kidney disease) stage 3, GFR 30-59 ml/min N18.30
--- OUTSIDE RECORDS SUMMARY | 2024-10-05 14:00 | XMS_ITS | Clinical Summary ---
Author Organization [address] Address [address] [place] [address] Care Team Providers Care Psychotherapist Name Role Phone Unavailable Primary Care Provider Unavailabl e Allergies Active Allergy Reactions Criticality Noted Date Comments Penicillins Medium 12/20/2015 Medications * This document contains information received from the source organization and may not represent a complete record from that organization. atenolol (TENORMIN) 25 MG tablet Take 25 mg by mouth 2 times daily (0900, 1700). Active atorvastatin (LIPITOR) 20 MG tablet Take 20 mg by mouth nightly. Active sertraline (ZOLOFT) 50 MG tablet Take 75 mg by mouth daily. Active cloNIDine HCl (CATAPRES) 0.1 MG tabletIndication s:take 1/2 tab twice a day Take 0.1 mg by mouth 2 (two) times daily. Pt takes .05mg BID to split dose Active insulin glargine (LANTUS) 100 unit/mL vialIndications: type 2 diabetes mellitus Inject 30 Units under the skin daily.. 10 units inj/via pen at night Active memantine (NAMENDA) 10 MG Immediate Release tablet Take 10 mg by mouth 2 (two) times daily. Active donepezil (ARICEPT) 10 MG tablet Take 10 mg by mouth nightly. Active liraglutide (VICTOZA 3-KINGA) 0.6 mg/0.1 mL (18 mg/3 mL) PnIjIndications: type 2 diabetes mellitus Inject 1.2 mg under the skin nightly.. Active amLODIPine (NORVASC) 10 MG tablet Take 10 mg by mouth nightly. Active aspirin 325 MG EC tabletIndication s:myocardial infarction prevention Take 325 mg by mouth daily.. Active olmesartan (BENICAR) 40 MG tabletIndication s:hypertension Take 40 mg by mouth 2 times daily (0900, 1700).. Active leuprolide (LUPRON) 30 mg injectionIndicat ions:advanced prostatic carcinoma Inject 46 mg into the muscle every 6 (six) months.. Active losartan (COZAAR) 50 MG tabletIndication s:hypertension,S tarted Octber 2017 Take 50 mg by mouth daily Active Active Problems Problem Noted Date Diagnosed Date Research study patient 12/20/2015 Social History Tobacco Use Types Packs/Day Years Used Date Smoking Tobacco: Former Smokeless Tobacco: Never Alcohol Use Standard Drinks/Week Comments No 0 (1 standard drink = 0.6 oz pur e alcohol) Sex and Gender Information Value Date Recorded Sex Assigned at Not on file Legal Sex Male 10:34 AM EDT Gender Identity Not on file Sexual Orientation Not on file Last Filed Vital Signs Vital Sign Reading Time Taken Comments Blood Pressure 161/81 04/13/2018 1:21 PM EST Pulse 51 04/13/2018 1:21 PM EST Temperature 36.7 C (98 F) 04/13/2018 1:21 PM EST Respiratory Rate 18 04/13/2018 1:21 PM EST Oxygen Saturation - - Inhaled Oxygen Concentration - - Weight - - Height - - Body Mass Index - - Plan of Treatment Health Maintenance Due Date Last Done Comments HIV screening 10/06/1958 Tetanus adult (Td q 10,TDAP once) 1963 Lipid disorder screening 1983 Diabetes screening 10/06/1988 Pneumococcal Vaccine (50+ years) (1 of 1 - PCV) 10/06/1993 Shingles vaccine (Shingrix) (1 of 2 - Shingrix (RZV) 2 Dose Standard Series) 10/06/1993 RSV Immunization (1 - 1-dose 75+ series) 10/06/2018 Covid-19 vaccine series (3 - season) 2023 04/06/2020, 03/16/2020 Influenza vaccine 10/24/2024 12/27/2018, 12/19/2017, 01/06/2017 Colon cancer screening, Colonoscopy Discontinued 04/23/2018 Meningococcal Vaccine Aged Out No sarwat bogdan eligible based on patient's age to complete this topic
--- OUTSIDE RECORDS SUMMARY | 2024-10-05 14:00 | XMS_ITS | Clinical Summary ---
Author Organization [facility] Address [address] [place] [id number] Care Team Providers Care Telemarketing Sales Representative Name Role Phone Casa Lim Primary Care Provider Unavailabl e Allergies Active Allergy Reactions Criticality Noted Date Comments Methocarbamol Other (See Comments) 10/23/2020 Penicillins Hives Medium 08/15/2014 Prednisone Unknown/Patient and Family Unable to Define Medium 03/13/2021 Mood changes Medications donepezil (ARICEPT) 10 MG tablet Take 10 mg by mouth nightly. Active finasteride (PROSCAR) 5 MG tablet Take 5 mg by mouth daily. Active insulin degludec (TRESIBA FLEXTOUCH) 100 UNIT/ML pen injection Inject 32 Units under the skin nightly. Active memantine (NAMENDA) 10 MG tablet Take 10 mg by mouth 2 (two) times a day. Active sertraline (ZOLOFT) 50 MG tablet Take 75 mg by mouth every morning. Active atorvastatin (LIPITOR) 20 MG tablet Take 20 mg by mouth nightly. Active Acetaminophen (APAP PO) Take 2 tablets by mouth daily as needed. Active Probiotic Product (PROBIOTIC PO) Take 1 gummy by mouth daily. Active lidocaine (PROZENA) 4 % patch Apply 1 patch topically daily as needed. Active Psyllium (METAMUCIL PO) Take 1 packet by mouth daily as needed. Active losartan (COZAAR) 50 MG tablet Take 50 mg by mouth daily. 2 8 Active multivitamin Tab tablet Take 1 tablet by mouth daily. Active Cyanocobalamin (B-12) 1000 MCG Cap Take by mouth. Activ e Echinacea 125 MG Tab Take by mouth. Activ e Eliquis 2.5 MG tablet 2 Active spironolactone (ALDACTONE) 25 MG tablet Take 25 mg by mouth daily. 2 Active dapagliflozin 10 MG tablet 3 Active PANTOprazole (PROTONIX) 40 MG EC tabletIndication s:Gastroesophage al reflux disease, unspecified whether esophagitis present,Throat clearing TAKE 1 TABLET BY MOUTH DAILY 90 tablet 1 5 Active Active Problems Problem Noted Date Diagnosed Date Change in bowel function 07/14/2022 Lumbar spondylosis 11/13/2021 Syndesmophyte 11/13/2021 Throat clearing 05/10/2021 Assessment & Plan (05/10/2021 10:58 AM EDT): New throat clearing and cough with eating Rule out GERD, post nasal drip, and oropharygneal dysphagia Start pantoprazole 40mg once daily Call back with update in 4 weeks If no change , then will need modified barium swallow with [facility] PHYSICIAN And then will need follow up in the office to help review and arrange colonoscopy Gastroesophageal reflux disease 05/07/2021 Assessment & Plan (05/10/2021 1:10 PM EDT): Avoid/limit tobacco, alcohol, chocolate, peppermint, caffeine, greasy foods, spicy foods, and acidic foods such as citrus and tomato. Eat smaller, more frequent meals, and do not eat within 2 hours of bedtime. If you have night-time symptoms, elevate the head of the bed 6 to 12 inches. Throat clearing, cough ? GERD ? Oropharyngeal dysphagia Treat with PPI If sx continue, check MBS Hx of colonic polyps 03/23/2018 Overview (03/23/2018): Last colonoscopy 2013 was incomplete, scope went to hepatic flexure. Had 2 small polyps, one HP and one TA F/u BE also incomplete ? Due to stool Assessment & Plan (05/10/2021 1:09 PM EDT): Last colon 04/2018 - TAx2, HPx2, recall 3 yrs Due for colonoscopy, given his recent cardiac evaluation and diagnosis of afib on eliquis - we will wait to schedule until follow up with cardiology at the end of May. Assessment & Plan (03/26/2018 10:05 AM EST): Last colonoscopy in 2013 was incomplete, scope only went to hepatic flexure. He did have TA polyp Discussed different options for repeat exam including ct colonography, repeat colonoscopy, cologuard He prefers to attempt to repeat colonoscopy. The risks, benefits and alternatives to the procedure were carefully explained to the patient. The risks include but are not limited to perforation, bleeding, infection, respiratory compromise and . All questions were answered. Will hold victoza and 1/2 dose of tresiba night of exam He does have a hx of Alzheimers but is still providing his own consent, his is his POA and she will be present with him at exam Immunizations Immunization Administration Dates Next Due Covid-19 MRNA Vaccine - appsFreedom 12+ (Purple Cap) 04/06/2020,03/16/2020 Social History Tobacco Use Types Packs/Day Years Used Date Smoking Tobacco: Former Smokeless Tobacco: Never Tobacco Cessation:Counseling Given: Not Answered Alcohol Use Standard Drinks/Week Comments No 0 (1 standard drink = 0.6 oz pure alcohol) hx of etoh abuse in the past, sober for 38 years AUDIT-C Answer Date Recorded Frequency of Alcohol Consumption Never 11/20/2017 Average Number of Drinks Not on file 018 Frequency of Binge Drinking Not on file 10/25 Sex and Gender Information Value Date Recorded Sex Assigned at Not on file Legal Sex Male 8:52 PM EDT Gender Identity Male 03/07/2020 5:26 PM EST Sexual Orientation Heterosexual (straight) 03/07 5:26 PM EST Last Filed Vital Signs Vital Sign Reading Time Taken Comments Blood Pressure 120/71 12/27/2023 11:23 AM EST Pulse 67 12/27/2023 11:23 AM EST Temperature 36.1 C (96.9 F) 01/13/2023 2:10 PM EST Respiratory Rate 18 12/27/2023 11:23 AM EST Oxygen Saturation 97% 12/27/2023 11:23 AM EST Inhaled Oxygen Concentration - - Weight 99.8 kg (220 lb) 12/27/2023 11:23 AM EST Height 188 cm (6' 2 ) 12/27/2023 11:23 AM EST Body Mass Index 28.25 12/27/2023 11:23 AM EST Plan of Treatment Upcoming Encounters Date Type Department Care Team (Late st Contact Info) Description 11/07/2024 11:15 AM EDT Consult [facility] [place] [address] [place] [id number] Demetrio Sood MD [address] [place] [address] Neil Gonzalez DO [address] [facility] [address] [place] [address] Health Maintenance Due Date Last Done Comments DTaP/Tdap/Td Vaccines (1 - Tdap) 10/06/1962 Pneumococcal Vaccines 50+ (1 of 1 - PCV) 10/06/1993 Zoster (Shingles) Vaccine (1 of 2) 10/06/1993 RSV Vaccine 60 years and older and Patients (1 - 1-dose 75+ series) 10/06/2018 COVID-19 Vaccine ( season) 2024 12/11/2023, 01/20/2023, 02/25/2022, Additional history exists Influenza Vaccine 09/23/2024 12/15/2023, , 12/24/2021, Additional history exists Lipid Panel Discontinued 11/19/2017 Hemoglobin A1C Discontinued 07/22/2023, 02/24, 12/08/2022, Additional history exists Hepatitis B Vaccines Aged Out No long er eligible based on patient's age to complete this topic Procedures Procedure Name Priority Date/Time Associated Diagnosis Comments HEMOGLOBIN A1C WITH ESTIMATED AVERAGE GLUCOSE Routine 11/19/2017 5:33 AM EDT LIPID PANEL Routine 11/19/2017 5:33 AM EDT from Last 3 Months or Most Recently Relevant to Health Maintenance Results * (ABNORMAL) Hemoglobin A1c with Estimated Average Glucose (11/19/2017 5:33 AM EDT) Hemoglobin A1C 7.1(H) <5.7 % [facility] Comment: A1c% Interpretation 5.7 - 6.0 Increase risk of diabetes 6.1 - 6.4 Higher risk of diabetes > or = 6.5 Consistent with diabetes Diabetes Care, 33(Supp 1):S1-S61, 2009 Estimated Average Glucose 157 mg/dL [facility] Comment:Performed at [place], [place] license No. [id number] CLIA No. [id number] Blood specimen (specimen) Blood specimen / Unknown 11/19/2017 5:33 AM EDT 11/19/2017 5:49 AM EDT us Lakeisha Vallejo MD LAB BLOOD ORDERABLES Mireya l Result [facility] * Lipid Panel (11/19/2017 5:33 AM EDT) Cholesterol, Total 123 <200 mg/dL [facility] Triglycerides 108 <150 mg/dL [facility] Cholesterol, HDL 43 >39 mg/dL [facility] Estimated LDL 58 <130 mg/dL [facility] Comment: NCEP Guidelines: < 100 mg/dL Optimal 100 - 129 mg/dL Near Optimal/Above Optimal 130 - 159 mg/dL Borderline High 160 - 189 mg/dL High >/= 190 mg/dL Very High Cholesterol/HDL Ratio 2.9 0.0 - 5.0 Ratio [facility] Comment: Relative Risk Ratio - Male Ratio - Female 0.5 3.4 3.3 1.0 5.0 4.4 2.0 9.6 7.1 3.0 23.4 11.0 Blood specimen (specimen) Blood specimen / Unknown 11/19/2017 5:33 AM EDT 11/19/2017 5:49 AM EDT Lakeisha Vallejo MD LAB BLOOD ORDERABLES Mireya l Result [facility] from Last 3 Months or Most Recently Relevant to Health Maintenance Insurance MEDICARE PART A & B [facility] Member Subscriber Plan / Payer (Ef fective 2017-Present) Name:[employer] Relation to Subscriber:Self Name:[employer] Payer ID:Not on file Group ID:Not on file Type:Not on file Address: [address] MEDICARE PART A & B [facility] MEDICARE PART A & B [facility] Advance Directives * Full Code (Latest Code Status on File) Date Activated Date Inactivated Comments 11/19/2017 12:23 AM 03/18/2021 3:39 PM Care Teams Telemarketing Sales Representative Relationship Specialty Start Date End Date Casa Lim PA PCP - General Internal Medicine 12/27/23
--- OUTSIDE RECORDS SUMMARY | 2024-10-05 14:00 | XMS_ITS | Clinical Summary ---
Author Organization [facility] Address [address] [place] [address] Care Team Providers Care Scrub Woman Name Role Phone Casa Lim PA-C Primary Care Provider [phone] Allergies Active Allergy Reactions Criticality Noted Date Comments Methocarbamol Other (See Comments) 10/23/2020 Penicillins Hives Low 08/15/2014 Prednisone 03/13/2021 Mood changes Medications Medication Sig Dispensed Refills Start Date End Date Status B-D ULTRAFINE III SHORT PEN 31G X 8 MM MISC TEST TWICE A DAY 100 each 3 01/26/2017 Active psyllium (METAMUCIL SMOOTH TEXTURE) 28 % packet Take 1 packet by mouth. 0 Active Multiple Vitamins-Minerals (MULTIVITAMIN ADULT PO) Take by mouth. 0 Active Cyanocobalamin (VITAMIN B-12 PO) Take 1 tablet by mouth daily. 0 Active ECHINACEA PO Take 1 capsule by mouth daily. 0 Active donepezil (ARICEPT) 10 MG tablet Take 1 tablet (10 mg total) by mouth every night at bedtime. 90 tablet 1 05/05/2019 Active Turmeric (QC TUMERIC COMPLEX PO) Take by mouth. 0 Active UNABLE TO FIND Focus Factor 0 Active memantine (NAMENDA) 10 MG tablet TAKE 1 TABLET BY MOUTH TWO TIMES DAILY 180 tablet 3 01/17/2020 Active glucose blood test strip Test tid dx e11.9 one touch verio strips 200 each 12 03/09/2021 Active finasteride (PROSCAR) 5 MG tablet Take 1 tablet (5 mg total) by mouth daily. 90 tablet 3 03/19/2022 Active traMADol-acetamino phen (ULTRACET) 37.5-325 MG per tablet Take 1 tablet by mouth every 6 (six) hours as needed for pain. 30 tablet 0 05/12/2022 Active pantoprazole (PROTONIX) 40 MG tablet 0 07/10/2022 Active hydrOXYzine (VISTARIL) 25 MG capsule Take 1 capsule (25 mg total) by mouth every 6 (six) hours as needed. 20 capsule 0 10/21/2022 Active Loperamide HCl (IMODIUM PO) Take by mouth. 0 Active spironolactone (ALDACTONE) tablet 25 mgIndications:Esse ntial hypertension TAKE 1 TABLET BY MOUTH DAILY 90 tablet 3 05/01/2023 Active atorvastatin (LIPITOR) tablet 20 mg TAKE 1 TABLET BY MOUTH ONCE DAILY 90 tablet 3 07/28/2023 Active amLODIPine (NORVASC) tablet 5 mg TAKE 1 TABLET BY MOUTH TWICE DAILY 180 tablet 3 08/05/2023 Active Additional Information Patient taking differently: Daily, Reason: Other, Reported on 10/06/2023 losartan (COZAAR) tablet 50 mg TAKE 1 TABLET BY MOUTH TWICE DAILY 180 tablet 3 08/05/2023 Active sertraline (ZOLOFT) 50 MG tablet TAKE 1 AND 1/2 TABLETS BY MOUTH DAILY 135 tablet 3 08/21/2023 Active Farxiga 10 MG tablet TAKE 1 TABLET BY MOUTH DAILY 90 tablet 3 09/22/2023 Active Continuous Glucose Sensor (FreeStyle Chacorta 3 Sensor) MISC 1 each by Does not apply route every 14 (fourteen) days. 6 each 3 2023 Active Continuous Glucose Attending Psychiatrist (FreeStyle Chacorta 3 [place]) MARIBELL 1 each by Does not apply route continuous prn. 1 each 0 2023 Active Eliquis 2.5 MG TABS tablet TAKE 1 TABLET BY MOUTH EVERY 12 HOURS 180 tablet 3 10/29/2023 Active Tresiba FlexTouch 100 UNIT/ML SOPN INJECT 15 UNITS SUBCUTANEOUSLY AT BEDTIME 15 mL 3 12/15/2023 Active Active Problems Problem Noted Date Diagnosed Date Gastroesophageal reflux disease without esophagi tis 08/11/2022 Diarrhea 04/15/2022 Thoracic aortic aneurysm without rupture 022 Atrial fibrillation 05/29/2021 Bradycardia 03/27/2021 PVD (peripheral vascular disease) 05/02/2020 Normochromic anemia 11/12/2017 History of colon polyps 11/12/2017 Dementia without behavioral disturbance 09/02/19 Type 2 diabetes mellitus wit h stage 3b chronic kidney disease, with long-term current use of insulin 11/27/2016 Stage 3 chronic kidney disease 11/27/2016 Essential hypertension 11/27/2016 Pure hypercholesterolemia 11/27/2016 Prostate cancer 11/27/2016 Cancer Staging:Clinical: Unsigned Resolved Problems Problem Noted Date Diagnosed Date Resolved Date Prostate cancer 10/21/2016 11/27/2016 Immunizations Name Administration Dates Next Due Influenza Quad (Afluria/Fluz one) 0.5mL >=6mon Vial (SD-IIV4) 12/19/2017,01/06/2017 Influenza Trivalent (Fluzone /Afluria) 5.0mL Multi-dose Vial 12/27/2018 Family History Medical History Relation Name Comments Heart disease Father Hypertension Father Stroke Father Diabetes Maternal Grandfather Cancer Maternal Grandmother Diabetes Paternal Grandfather Hypertension Paternal Grandfather Stroke Paternal Grandfather Relation Name Status Comments Father Maternal Grandfather Maternal Grandmother Paternal Grandfather Social History Tobacco Use Types Packs/Day Years Used Date Smoking Tobacco: Former Cigarettes 3 18 Q uit: 08/29/1980 Passive Smoke Exposure: Past Smokeless Tobacco: Never Tobacco Cessation:Counseling Given: Not Answered Alcohol Use Standard Drinks/Week Comments No 0 (1 standard drink = 0.6 oz pur e alcohol) hx etoh 35 years ago Social Connection and Isolation Panel [NHANES] A nswer Date Recorded In a typical week, how many times do you talk on the phone with family, friends, or neighbors? Three times a week 06/16/19 How often do you get togethe r with friends or relatives? Three times a week 06/16/2023 How often do you attend chur ch or lutheran services? 1 to 4 times per year 06/16/2023 Do you belong to any clubs o r organizations such as zoroastrianism groups, unions, fraternal or athletic groups, or school groups? Yes 06/16/2023 How often do you attend meet ings of the clubs or organizations you belong to? 1 to 4 times per year 06/16/2023 Are you , , di vorced, , never , or living with a partner? 06/16/2023 Overall Financial Resource Strain (CARDIA) Answe r Date Recorded How hard is it for you to pa y for the very basics like food, housing, medical care, and heating? Not very hard 06/16/2023 Hunger Vital Sign Answer Date Recorded Within the past 12 months, y ou worried that your food would run out before you got the money to buy more. Never true 06/16/19 24 Within the past 12 months, t he food you bought just didn't last and you didn't have money to get more. Never true 06/16/2023 PRAPARE - Transportation Answer Date Re corded In the past 12 months, has l ack of transportation kept you from medical appointments or from getting medications? No 05/25 In the past 12 months, has l ack of transportation kept you from meetings, work, or from getting things needed for daily living? No 06/16/2023 Housing Stability Vital Sign Answer Harish e Recorded In the last 12 months, was t here a time when you were not able to pay the mortgage or rent on time? No 06/16/2023 In the last 12 months, how many places have you lived? 1 06/16/2023 In the last 12 months, was t here a time when you did not have a steady place to sleep or slept in a intermediate (including now)? No 06/16/2023 Sex and Gender Information Value Date Recorded Sex Assigned at Male 04/12/2018 7:04 AM EST Gender Identity Not on file Sexual Orientation Not on file Job Start Date Occupation Industry Not on file Not on file Not on file Last Filed Vital Signs Vital Sign Reading Time Taken Comments Blood Pressure 114/79 11/23/2023 11:24 AM EDT Pulse 60 11/23/2023 11:24 AM EDT Temperature 36.5 C (97.7 F) 10/06/2023 10:50 AM EDT Respiratory Rate 14 11/23/2023 11:2 4 AM EDT Oxygen Saturation 97% 11/23/2023 11: 24 AM EDT Inhaled Oxygen Concentration - - Weight 104.9 kg (231 lb 3.2 oz) 024 11:24 AM EDT Height 188 cm (6' 2 ) 05/14/2023 10:27 AM EDT Body Mass Index 29.68 05/14/2023 10:27 AM EDT Plan of Treatment Health Maintenance Due Date Last Done Comments BMI Counseling 10/06/1961 Diabetes: Eye Exam (No Retinopathy) 10/06/1961 Diabetes: Foot Exam 10/06/1961 Diabetes: Microalbumin Test 10/06/1961 DTap / Tdap / Td (1 - Tdap) 10/06/1962 Shingrix-Zoster Vaccine (1 of 2) 10/06/1962 Pneumococcal Vaccine (2 of 2 - PCV) 06/29/2009 06/29/2008 RSV Adult > 60+ Yrs or (1 - 1-dose 75+ series) 10/06/2018 Preventative Health Evaluation 04/15/2023 04/15/2022, 12/17/2020, 12/14/2019, Additional history exists COVID-19 Vaccine ( season) 2023 06/16/2021, 11/24/2020, 04/06/2020, Additional history exists Depression Screening 12/16/2023 12/15/2022, 12/18/2021, 09/11/2020, Additional history exists Fall Risk Assessment 12/16/2023 12/15/2022, 12/18/2021, 09/11/2020, Additional history exists Hemoglobin A1C Due 06/28/2024 12/30/2023, 0 07/22/2023, 03/17/2023, Additional history exists Influenza Vaccine (#1) 2024 , 12/27/2018, 12/27/2018, Additional history exists Hepatitis B Vaccines Aged Out No long er eligible based on patient's age to complete this topic RSV Ped < 20 months Aged Out No longe r eligible based on patient's age to complete this topic Medical Devices Implanted Type Area Line Inspector Device Identifier Shelf Expiration Date Model / Serial / Lot Screw 6.5 X 45.Mm - [id number] - [id number] Implanted:Qty: 4 on 07/12/2015 by [place]iz [place] [facility] Posterior: Spine Lumbar [employer] [id number] / / Tulip 5.5mm Polyaxial - [id number] - [id number] Implanted:Qty: 4 on 07/12/2015 by [place]iz [place] [facility] Posterior: Spine Lumbar [employer] 1119.0100 / / Cap Locking 5.5mm - [id number] - [id number] Implanted:Qty: 4 on 07/12/2015 by [place]lon Res[place]iz [place] [facility] Posterior: Spine Lumbar [employer] 1119.0000 / / Ronald H-Link 51mm Titanium Spinal - [id number] - [id number] Implanted:Qty: 1 on 07/12/2015 by [place]lon Res[place]iz [place] [facility] Posterior: Spine Lumbar [employer] [id number] / / Advance Directives For more information, please contact: [phone] Documents on File Type Date Recorded Patient Landscaping Supervisor Expl anation Advance Directive and Living Will 04/23/2018 12:13 PM Brain Donation Card Advance Directive and Living Will 07/17/2015 Advance Directive and Living Will 07/12/2015 7:06 AM Advance Directive and Living Will 07/12/2015 7:06 AM Latest Code Status on File Code Status Date Activated Date Inactivated Comments Full Code 04/23/2018 1:37 PM 04/23/2018 8:25 PM This co de status was ascertained in the following way: discussion with patient. Code Status History Code Status Date Activated Date Inactivated Comments Full Code 07/12/2015 12:17 PM 07/15/2015 8:18 PM This code status was ascertained in the following way: discussion with patient. Care Teams Scrub Woman Relationship Specialty Start Date End Date Casa Lim PA-C PCP - General Generation Technician 07/28/23
--- OUTSIDE RECORDS SUMMARY | 2024-10-05 14:00 | XMS_ITS | Encounter Summary ---
Author Organization [facility] Address [address] [place] [address] Phone Care Team Providers Care Well Logging Captain Mud Analysis Name Role Phone Demetrio Sood MD Primary Care Provider [phone] Encounter Details Date Type Department Care Team (Late st Contact Info) Description 05/19/2024 Documentation Only [facility], [address] [place] [address] Liana [place], [place] [address] [place] [address] Social History Tobacco Use Types Packs/Day Years Used Date Smoking Tobacco: Former Smokeless Tobacco: Never Sex and Gender Information Value Date Recorded Sex Assigned at Not on file Legal Sex Male 5:07 PM EST Gender Identity Not on file Sexual Orientation Not on file documented as of this encounter Plan of Treatment Not on file documented as of this encounter Visit Diagnoses Not on filedocumented in this encounter Care Teams Well Logging Captain Mud Analysis Relationship Specialty Start Date End Date Demetrio Sood MD PCP - General 03/05/20 documented as of this encounter
--- OUTSIDE RECORDS SUMMARY | 2024-10-05 14:00 | XMS_ITS ---
Author Organization [facility] [place] Address [address] [place] [address] Phone Care Team Providers Care Manager Studio Name Role Phone Casa Lim Primary Care Provider [phone] Active Problems Problem Noted Date Diagnosed Date UTI (urinary tract infection), uncomplicated 02/2024 UTI (urinary tract infection) 05/23/2024 Catheter-associated urinary tract infection ([facility] V24) 04/30/2024 Urinary tract infection asso ciated with catheterization of urinary tract, unspecified indwelling urinary catheter type, initial encounter ([facility] V24) 04/30/2024 Sepsis ([facility] V24, [facility] V28) 04/19/2024 ANGI (acute kidney injury) ([facility] V24) 04/19/19 25 Hypoxia 04/13/2024 Type 2 diabetes mellitus wit h stage 3b chronic kidney disease, with long-term current use of insulin ([facility] V24, [facility] V28) 01/28/2024 Gastroesophageal reflux disease without esophagi tis 08/11/2022 Diarrhea 04/15/2022 Thoracic aortic aneurysm without rupture ([facility] V24) 06/19/2021 Atrial fibrillation ([facility] V24, [facility] V28) 0 05/29/2021 Bradycardia 03/27/2021 PVD (peripheral vascular disease) ([facility] V24) 05/02/2020 Normochromic anemia 11/12/2017 Dementia without behavioral disturbance ([facility] V24, [facility] V28) 09/01/2017 Essential hypertension 11/27/2016 Prostate cancer ([facility] V24, [facility] V28) 11/27 Pure hypercholesterolemia 11/27/2016 Stage 3 chronic kidney disease ([facility] V24, [facility] V28) 11/27/2016 Current Oncology Plans No current plan information found. Past Plans No past plan information found. Radiation Treatments * No radiation treatments are documented for this patient in [facility]. Treatments may have been administered in another system. Lifetime Dose Tracking * Chemical Lifetime Dose Automatic Entry Manual Entr y Fluoro Time 5.07 minutes 5.07 minutes 0 minutes Air Kerma 12.8 mGy 12.8 mGy 0 mGy
--- OUTSIDE RECORDS SUMMARY | 2024-10-05 14:00 | XMS_ITS | Clinical Summary ---
Author Organization [facility] Address [address] [place] [address] Phone Care Team Providers Care Licensed Psychiatric Technician Name Role Phone Unknown, Unknown MD Primary Care Provider Unavai lable Allergies Active Allergy Reactions Criticality Noted Date Comments Penicillins 05/25/2017 Social History Tobacco Use Types Packs/Day Years Used Date Smoking Tobacco: Never Assessed Sex and Gender Information Value Date Recorded Sex Assigned at Not on file Legal Sex Male 10:03 AM EDT Gender Identity Not on file Sexual Orientation Not on file Plan of Treatment Not on file Medical Devices Not on file Care Teams Licensed Psychiatric Technician Relationship Specialty Start Date End Date Unknown, Unknown, PCP - General 05/14/17 Additional Source Comments The information contained in this document represents components of the legal health record. It is not the complete legal health record.[facility]
== END 2024-10-05 14:00 | disposition home or self-care (01) ==
LOC: HO.HKAE 13:34
PROVIDERS: PCP Specialist; Visit Provider Internal Medicine Hypertension Specialist
DX: N18.30 Chronic kidney disease, stage 3 unspecified (principal)
CPT/HCPCS: 99214

== ENCOUNTER → 2024-10-05 13:33 | Outpatient (BNVA) | payer MEDICARE, SELFPAY | PROVIDERS: PCP Specialist; Visit Provider Internal Medicine Hypertension Specialist | DX: N18.30 Chronic kidney disease, stage 3 unspecified (principal) | CPT/HCPCS: 99212 ==